=== PATIENT | male | born 1980 | race Caucasian/White ===

== ENCOUNTER 2024-05-19 23:10 | Emergency (ER) | payer OTHER, SELFPAY ==
[2024-05-19 23:10] VITALS: BMI 37.1
[2024-05-19 23:28] VITALS: BP 129/81
[2024-05-20 00:13] LABS: Urine Albumin Trace (Neg - Trace); Urine Bilirubin 1+ (Negative); Urine Character Clear (Clear); Urine Color Yellow; Urine Glucose Negative (Negative); Urine Ketone 1+ (Negative); Urine Leukocyte Negative (Negative); Urine Nitrite Negative (Negative); Urine Occult Blood 2+ (Negative); Urine Specific Gravity 1.025 (<1.030); Urine Urobilinogen 3+ (Neg - 1+)
[2024-05-20 00:35] VITALS: BP 115/82
--- NOTE | 2024-05-20 00:41 | ED.GENMED ---
History of Present Illness
General
Chief Complaint: Flank Pain
Source: patient
Time Seen by Provider: 05/20/24 00:28
History of Present Illness
History of Present Illness:
43-year-old male presents to the emergency room complaining of left leg pain. Patient began having flank pain a couple days ago. Today the pain became 2. Tolerate. He had chills today but did not take his temperature. Feels nauseous but has not
vomited. Patient states he does have a history of kidney stones.
Phy Exam
Physical Exam
Physical Exam:
General: Awake, Alert, Oriented X3. No acute distress.
Vitals: unremarkable
Head: Atraumatic
Eyes: Pupils equal, EOMI
Throat: Airway intact, no exudates
Neck: Trachea midline
Lungs: Clear and equal b/l
Heart: Regular rate, no murmurs
Abd: Soft, Nontender, No pulsatile mass
Back: Left CVA tenderness to percussion
Neuro: Nonfocal
Skin: Warm, dry, no rash
Extremities: pulses equal b/l, no edema
Course
Orders/Labs/Results
Orders:
Orders
05/19/24 23:53
Urinalysis Reflex To Culture Urgent
Date Specimen was Collected: 05/19/24
Time Specimen was Collected: 23:51
Urine Microscopic Reflex Cult Urgent
Urine Culture Urgent
JORJE Source: U
Specimen Description:
Date Specimen was Collected: 05/19/24
Time Specimen was Collected: 23:51
05/20/24 00:40
0.9% Sodium Chloride 500 ml [Nss] 500 ml IV BOLUS
Ketorolac [Toradol] 15 mg IV NOW STA
Ondansetron Injectable [Zofran] 4 mg IV NOW STA
05/20/24 00:41
CT Abd/pel Without Iv Or Oral Urgent
Comment:
Reason For Exam: left flank pain
05/20/24 00:54
Basic Metabolic Panel Urgent
Complete Blood Count/With Diff Urgent
Abnormal Lab Results
05/19/24 05/20/24
23:53 00:54
WBC 15.4 H 10^3/uL
(4.8-10.8)
MPV 10.7 H fL
(7.4-10.4)
Abs Immat Gran (auto) 0.1 H 10^3/uL
(0-0.05)
Absolute Neuts (auto) 11.7 H 10^3/uL
(1.4-6.5)
Absolute Monos (auto) 1.0 H 10^3/uL
(0.1-0.6)
Neutrophils % 76.2 H %
(42.2-75.2)
Lymphocytes % 15.1 L %
(20.5-51.1)
BUN 28 H mg/dl
(9-20)
Creatinine 1.8 H mg/dL
(0.7-1.3)
Glucose 109 H mg/dl
(70-99)
Urine Ketones 1+ A
(Negative)
Ur Occult Blood Reflex 2+ A
(Negative)
Urine Bilirubin 1+ A
(Negative)
Urine Urobilinogen 3+ A
(Neg - 1+)
Urine RBC 7-10 A /HPF
(0-2)
Urine Bacteria (Reflex) Moderate A
(Negative)
05/20/24 00:54
05/20/24 00:54
Vital Signs
Initial and Last Documented VS:
Initial Vital Signs
Temp Pulse Resp BP Pulse Ox
98.1 F 78 18 129/81 95
05/19/24 23:28 05/19/24 23:28 05/19/24 23:28 05/19/24 23:28 06/26/24 23:28
Last Documented Vital Signs
Temp Pulse Resp BP Pulse Ox
98.3 F 70 18 115/82 96
05/20/24 00:35 05/20/24 00:35 05/20/24 00:35 05/20/24 00:35 05/20/24 00:35
MDM/Problems Addressed
Differential Diagnosis Includes:
Kidney stone, muscle strain, pyelonephritis
MDM/Problems Addressed:
CT confirms the presence of a stone. It is quite large. Unlikely to pass spontaneously. Case discussed with Dr. Floyd. He will see the patient in the office likely tomorrow. Patient should call the office at 9 AM. Patient understands he needs
to return to the hospital if he develops a fever.
*Radiology
Radiology exam reviewed: other (Patient report reviewed)
*Pulse Oximetry
Patient hypoxic: no
*Critical Care Note
Total Time (30-74mins, 75-104mins- exclusive of procedures): Not Applicable
Patient Management
Social determinants of health affecting care: Strong social support
ED Attending Note
-
Portions of this chart may have been created with voice recognition software.� Occasional wrong word or��sound alike� substitutions may have occurred due to the inherent limitations of voice recognition software.
Discharge Plan
Departure
Patient Disposition: Home (Routine Discharge)
Date of Disposition: 05/20/24
Time of Disposition: 02:13
Patient with high blood pressure during this ER visit?: No
Condition: Good
Discharge Problem:
Kidney stone on left side
Instructions: Kidney Stones (DC), Narcotic Pain Medication
Prescriptions:
New
oxycodone 5 mg tablet
5 mg PO Q6H PRN (Reason: Pain) Qty: 12 0RF
Referrals:
Margareth Birch CRNP [Family Provider] -
Stand Alone Forms: Return to Work
Activity Restrictions/Additional Instructions:
Please take Tylenol 650 mg every 6 hours for pain. You can also take oxycodone 5 mg every 6 hours for pain. They can be crushed if you have difficulty taking pills. You need to call Dr. Heredia's office at 9 AM to arrange an appointment. You need
to return to the emergency room if you develop a fever before you passed the stone as this becomes a surgical emergency.
Interventions
Interventions:
*Risk Screen - Suicide Last Done: 05/19/24 23:28
*Neglect/Abuse Screening Last Done: 05/19/24 23:28
*ED COVID-19 Vaccine History Last Done: 05/19/24 23:28
Discharge Date and Time
Print Language: SWEDISH
[2024-05-20] MEDS: NSS 500 IV (00:51)
[2024-05-20] MEDS: ZOFRAN 4 MG IV (00:52)
[2024-05-20] MEDS: TORADOL 15 MG IV (00:52)
[2024-05-20 01:02] LABS: Urine Mucus Moderate
[2024-05-20 01:03] LABS: Urine Amorphous Seen
[2024-05-20 01:09] LABS: Urine Bacteria Moderate (Negative); Urine White Cell 0-2 /HPF (0-5)
[2024-05-20 01:09] LABS: % Basophils 0.4 % (0-2); % Immature Granulocytes 0.5 % (0-0.5); % Lymphocytes 15.1 % (20.5-51.1); % Monocytes 6.8 % (1.7-9.3); % Neutrophils 76.2 % (42.2-75.2); Absolute Basophils 0.1 10^3/uL (0-0.2); Absolute Eosinophils 0.2 10^3/uL (0-0.7); Absolute Immature Granulocytes 0.1 10^3/uL (0-0.05); Absolute Lymphocytes 2.3 10^3/uL (1.2-3.4); Absolute Neutrophils 11.7 10^3/uL (1.4-6.5); Hematocrit 44.7 % (39.0-52.0); Hemoglobin 15.6 g/dL (13.0-18.0); Mean Corp Hgb Conc. 34.9 g/dL (33.0-37.0); Mean Corpuscular Hgb 29.4 pg (27.0-31.0); Mean Corpuscular Volume 84.2 fL (80.0-94.0); Mean Platelet Volume 10.7 fL (7.4-10.4); Nucleated Red Blood Cells % 0 % (-); Platelet Count 225 10^3/uL (130-400); Red Blood Cell Count 5.31 10^6/uL (4.70-6.10); White Blood Cell Count 15.4 10^3/uL (4.8-10.8)
[2024-05-20 01:21] LABS: Blood Urea Nitrogen 28 mg/dl (9-20); Calcium 8.9 mg/dl (8.4-10.2); Carbon Dioxide 24 mmol/L (22-30); Chloride 105 mmol/L (98-107); Estimated Creatinine Clearance 63 ml/min; Glucose 109 mg/dl (70-99); Potassium 4.4 mmol/L (3.5-5.1); Sodium 137 mmol/L (135-145); eGFR 46.72
[2024-05-20] MEDS: DILAUDID 0.5 MG IV (02:24)
== END 2024-05-20 02:46 | disposition home or self-care (01) ==
LOC: EMR 23:10
PROVIDERS: Emergency Medicine; EMERGENCY PHYSICIAN Emergency Medicine; FAMILY PHYSICIAN Nurse Practitioner Family
DX: N20.0 Calculus of kidney (principal); Z87.442 Personal history of urinary calculi
CPT/HCPCS: 99284; 96374; 96375; 96361; 74176; 80048; 81003; 81015; 85025; 87086

== ENCOUNTER 2024-05-21 05:32 | Observation (INO) | payer OTHER, SELFPAY ==
[2024-05-20 23:49] VITALS: BP 150/90
[2024-05-21] VITALS (12 sets, daily range): BP systolic 102–130; BP diastolic 58–97; BMI 37.9
[2024-05-21 01:15] LABS: % Basophils 0.3 % (0-2); % Eosinophils 1.4 % (0-6); % Immature Granulocytes 0.4 % (0-0.5); % Lymphocytes 20.3 % (20.5-51.1); % Monocytes 7.4 % (1.7-9.3); % Neutrophils 70.2 % (42.2-75.2); Absolute Basophils 0.1 10^3/uL (0-0.2); Absolute Eosinophils 0.2 10^3/uL (0-0.7); Absolute Immature Granulocytes 0.1 10^3/uL (0-0.05); Absolute Lymphocytes 2.9 10^3/uL (1.2-3.4); Absolute Monocytes 1.1 10^3/uL (0.1-0.6); Absolute Neutrophils 10.2 10^3/uL (1.4-6.5); Hematocrit 43.9 % (39.0-52.0); Hemoglobin 14.6 g/dL (13.0-18.0); Mean Corp Hgb Conc. 33.3 g/dL (33.0-37.0); Mean Corpuscular Hgb 29.4 pg (27.0-31.0); Mean Corpuscular Volume 88.3 fL (80.0-94.0); Mean Platelet Volume 11.2 fL (7.4-10.4); Nucleated Red Blood Cells % 0 % (-); Platelet Count 209 10^3/uL (130-400); Red Blood Cell Count 4.97 10^6/uL (4.70-6.10); White Blood Cell Count 14.5 10^3/uL (4.8-10.8)
[2024-05-21 01:32] LABS: Urine Albumin Negative (Neg - Trace); Urine Bilirubin 1+ (Negative); Urine Character Clear (Clear); Urine Color Yellow; Urine Glucose Negative (Negative); Urine Ketone 2+ (Negative); Urine Leukocyte Negative (Negative); Urine Nitrite Negative (Negative); Urine Occult Blood 1+ (Negative); Urine Specific Gravity 1.015 (<1.030); Urine Urobilinogen 3+ (Neg - 1+)
[2024-05-21 01:37] LABS: Lactic Acid 1.1 mmol/L (0.7-2.0)
[2024-05-21 01:44] LABS: Urine Squamous Cell 0-2 /LPF (Few)
[2024-05-21 01:45] LABS: Urine Bacteria Few (Negative); Urine Mucus Few; Urine Red Blood Cell 16-20 /HPF (0-2); Urine White Cell 0-2 /HPF (0-5)
[2024-05-21 01:49] LABS: ALT (SGPT) 22 U/L (0-50); AST (SGOT) 26 U/L (17-59); Alkaline Phosphatase 94 U/L (38-126); Blood Urea Nitrogen 30 mg/dl (9-20); Calcium 8.9 mg/dl (8.4-10.2); Carbon Dioxide 25 mmol/L (22-30); Chloride 103 mmol/L (98-107); Glucose 90 mg/dl (70-99); Potassium 4.6 mmol/L (3.5-5.1); Sodium 136 mmol/L (135-145); Total Protein 6.9 g/dl (6.3-8.2); eGFR 43.79
--- NOTE | 2024-05-21 02:43 | ED.GENMED ---
History of Present Illness
General
Chief Complaint: Fever
Source: patient
Exam Limitations: none
Time Seen by Provider: 05/21/24 02:27
History of Present Illness
History of Present Illness:
This is a 43 year old male that comes in with c/o feeling weak and sweating. Patient was seen her last night for renal calculus. States that he went to see Dr. Heredia yesterday and he was told that he will not pass this stone. State that he was told
to come in if he was not feeling will. States that he took Oxycodone at 1pm and this is not really helping his pain. States that he was weak and sweating and states that he was not himself. States that he had chills but was not shaking. States that
he was also nauseated, had a headache and dizziness. Denies any fever, chest pain, SOB, abd pain, vomiting, diarrhea, urinary burning.
Past History
Past History
ED Past Medical History: HTN and Other (Renal calculus)
ED Past Surgical History: None
Social History
Tobacco: Non-smoker
Alcohol: None
Personal: Single (has significant other)
Living: with family
Review of Systems
Review of Systems
All Other Systems: ROS reviewed and negative except as documented in HPI and ROS
Constitutional: Reports night sweats and chills (but not shaking); Denies fever
EENT: Reports no symptoms
Respiratory: Denies cough or trouble breathing
Cardiac: Reports no symptoms; Denies chest pain
ABD/GI: Reports abdominal pain (Sore) and nausea; Denies vomiting or diarrhea
: Reports no symptoms; Denies dysuria, frequency or urgency
Musculoskeletal: Reports no symptoms
Skin: Reports no symptoms
Neurological: Reports dizzy and headache
Psychiatric: Reports no symptoms
Phy Exam
General Physical Exam
General Presentation: no apparent distress
General age: appears stated age
General Skin: warm and dry
General Habitus: normal
General Mental: alert
General Hydration: dry mucous membranes
ENT Exam
ENT Exam: TM's normal, pharynx normal and neck supple
Eye Exam
Eye Exam: EOMI
Cardiovascular Exam
Cardiovascular Exam: regular rate/rhythm, no edema and normal peripheral pulses
Pulmonary Exam
Pulmonary Exam: lungs clear, no respiratory distress, no rales, chest non tender, no crackles, no rhonchi, no wheezing and no cough
Gastrointestinal Exam
Gastrointestinal Exam: normal bowel sounds, soft, no organomegaly, no pulsatile mass, non distended and tender (Slight tenderness right sided with palpation)
Musculoskeletal Exam
Musculoskeletal Exam: full ROM and no edema
Skin Exam
Skin Exam: normal color, warm/dry, no rash and no petechia
Psychiatric Exam
Psychiatric Exam: normal mood/affect
Course
Orders/Labs/Results
Orders:
Orders
05/21/24 00:53
IV Insert/Care/Rem.- Treatment PRN
05/21/24 01:06
Complete Blood Count/With Diff Urgent
Comprehensive Metabolic Panel Urgent
Lactic Acid Q4H
Comment: ON ICE, CANCEL 2ND ORDER IF FIRST LACTIC ACID LEVEL <2
Urinalysis Reflex To Culture Urgent
Date Specimen was Collected: 05/21/24
Time Specimen was Collected: 00:54
Urine Microscopic Reflex Cult Urgent
Blood Culture Q30M
JORJE Source: Blood/Venous
Specimen Description:
Comment: FROM 2 SEPARATE SITES
05/21/24 02:14
Blood Culture Q30M
JORJE Source: Blood/Venous
Specimen Description:
Comment: FROM 2 SEPARATE SITES
05/21/24 02:40
0.9% Sodium Chloride 1000 ml [Nss] 1,000 ml IV BOLUS
05/21/24 03:07
HYDROmorphone [Dilaudid] 1 mg IV NOW STA
Ondansetron Injectable [Zofran] 4 mg IV NOW STA
Abnormal Lab Results
05/21/24
01:06
WBC 14.5 H 10^3/uL
(4.8-10.8)
MPV 11.2 H fL
(7.4-10.4)
Abs Immat Gran (auto) 0.1 H 10^3/uL
(0-0.05)
Absolute Neuts (auto) 10.2 H 10^3/uL
(1.4-6.5)
Absolute Monos (auto) 1.1 H 10^3/uL
(0.1-0.6)
Lymphocytes % 20.3 L %
(20.5-51.1)
BUN 30 H mg/dl
(9-20)
Creatinine 1.9 H mg/dL
(0.7-1.3)
Urine Ketones 2+ A
(Negative)
Ur Occult Blood Reflex 1+ A
(Negative)
Urine Bilirubin 1+ A
(Negative)
Urine Urobilinogen 3+ A
(Neg - 1+)
Urine RBC 16-20 A /HPF
(0-2)
Urine Bacteria (Reflex) Few A
(Negative)
05/21/24 01:06
05/21/24 01:06
Leukocytosis, Acute renal insufficiency, Urine negative for infection. Lactic acid normal at 1.1, Urine negative for infection.
Vital Signs
Initial and Last Documented VS:
Initial Vital Signs
Temp Pulse Resp BP Pulse Ox
98.7 F 73 18 150/90 99
05/20/24 23:49 05/20/24 23:49 05/20/24 23:49 05/20/24 23:49 05/20/24 23:49
Last Documented Vital Signs
Temp Pulse Resp BP Pulse Ox
98.6 F 74 20 130/90 98
05/21/24 00:58 05/21/24 00:58 05/21/24 00:58 05/21/24 00:58 05/21/24 00:58
MDM/Problems Addressed
Differential Diagnosis Includes:
Renal calculus,
MDM/Problems Addressed:
This is a 43 year old male that was seen here on 05/20/24. Patient was told that he had a renal calculus. Patient followed up with Dr. Heredia on the and was scheduled for surgery on Friday. Today patient had increased pain as his oxycodone was
not helping. States that he was sweating, had chills but was not shaking and he felt weak.
Will medicate for pain. Give IV fluids, get labs.
Spoke with Dr. Colon and will admit patient and keep NPO. Back into see patient and explained that he would be admitted.
Chronic conditions affecting care: HTN
Acute Exacerbation and/or Progression of Chronic Illness:
Renal calculus
*Pulse Oximetry
Patient hypoxic: no
*EKG
Interpreted by ED Provider?: NA
Rate: EKG- N/A
*[employer] Interpretation
Rate: normal
Heart Rate: 68
Rhythm: sinus
*Critical Care Note
Total Time (30-74mins, 75-104mins- exclusive of procedures): Not Applicable
ED Attending Note
-
Portions of this chart may have been created with voice recognition software.� Occasional wrong word or��sound alike� substitutions may have occurred due to the inherent limitations of voice recognition software.
Discharge Plan
Departure
Patient Disposition: Admit
Date of Disposition: 05/21/24
Time of Disposition: 03:15
Admit to: Med/Surg
Presentation/result/management discussed w/ accepting MD/DO: Dr. Colon
Patient with high blood pressure during this ER visit?: Yes
Condition: Good
Discharge Problem:
Renal calculus, left
Prescriptions:
No Action
oxycodone 5 mg tablet
5 mg PO Q6H PRN (Reason: Pain) Qty: 12 0RF
'Vallarta'
160 mg PO DAILY
amlodipine 5 mg Tablet
5 mg PO DAILY
Interventions
Interventions:
*General Assessment Last Done: 05/21/24 01:50
ED- Fall Risk Assessment Last Done: 05/21/24 01:50
*ED COVID-19 Vaccine History Last Done: 05/21/24 01:50
ED- Neurological Assessment Last Done: 05/21/24 01:50
ED-Skin Assessment Last Done: 05/21/24 01:50
Discharge Date and Time
Print Language: CZECH
[2024-05-21] MEDS: NSS 1000 IV ×2 (03:24→06:06)
[2024-05-21] MEDS: ZOFRAN 4 MG IV (03:25)
[2024-05-21] MEDS: DILAUDID 1 MG IV ×2 (03:25→14:10)
--- NOTE | 2024-05-21 03:57 | HPS.HSE ---
Family Physician
-
Family Physician: KEMI Alvarez
Chief Complaint
-
Weakness, diaphoresis
History of Present Illness
Patient is a 43-year-old male with past medical history of hypertension and renal calculus. Patient presented to [facility] ED for evaluation following increased weakness with diaphoresis. Dr. Heredia saw patient in the out- patient setting and
informed him that this stone likely would not pass and instructed him to go to ED if not feeling well. Family at bedside stated that he did not seem himself this afternoon where he was very diaphoretic, pale and just 'not himself.' Patient claims he
experienced some nausea but denies any episodes of emesis. Patient denies fever, chest pain, shortness of breath, abdominal pain, emesis, diarrhea, constipation and urinary symptoms.
Medical History
Past Medical History
Past Medical History: Reports HTN
Past Surgical History: Reports None
Social History
Tobacco: Smoker (24 pack years)
Alcohol: None
Drug: None (significant other)
Personal: Single
Living: With Roomate (significant other)
Employment: Employed (starts new job Friday)
Family History
Family History: Not pertinent
Allergies / Home Medications
Allergies reflects when Allergies were last updated in [employer]
Home Medications with original date entered in [employer]
Allergy/Medication List:
Allergies
Allergy/AdvReac Type Severity Reaction Status Date / Time
No Known Allergies Allergy Verified 05/20/24 23:47
Review of Systems
-
History Source: Patient
A 12 point ROS was completed and negative except as noted: Yes
Constitutional: Reports Fatigue and Chills
EENT: Reports See HPI
Respiratory: Reports See HPI
Cardiac: Reports Diaphoresis
Abdomen/GI: Reports Nausea
: Reports See HPI
Musculoskeletal: Reports See HPI
Neurological: Reports See HPI
Endocrine: Reports See HPI
Hematologic/Lymphatic: Reports See HPI
Psych: Reports See HPI
Physical Exam
Vital Signs
Vital Signs
Temp Pulse Resp BP Pulse Ox
98.6 F 67 27 128/79 95
05/21/24 00:58 05/21/24 03:15 05/21/24 03:15 05/21/24 03:00 05/21/24 03:15
Physical Exam
General: Well Developed, Well Nourished, Comfortable, Conversant and Obese
HEENT: NormoCephalic, Moist mucous membranes, PERRLA and [place] Conjunctivae
Respiratory: Clear and Non Labored Respirations
Cardiac: S1/S2 and Regular Rhythm
Breast: Deferred by me
GI: Soft, Non Tender and Normal Bowel Sounds
Rectal: Deferred by Provider
Genito-urinary: Deferred by me
Musculoskeletal: No Clubbing, No Cyanosis and No Edema
Skin: Warm, Dry and IV/Catheter Site
Neuro: Awake and AO x 3
Hematologic/Lymphatic: No Lymphadenopathy
Psych: Intact Judgment/Insight
Laboratory Results
-
05/21/24 01:06
05/21/24 01:06
Laboratory Results
Lactic Acid Cancelled 05/21/24 05:00
Total Bilirubin 1.0 mg/dl (0.2-1.3) 05/21/24 01:06
AST 26 U/L (17-59) 05/21/24 01:06
ALT 22 U/L (0-50) 05/21/24 01:06
Alkaline Phosphatase 94 U/L (38-126) 05/21/24 01:06
Impression/Plan
-
IMPRESSION:
Patient is a 43-year-old male with past medical history of hypertension and renal calculus. Patient presented to [facility] ED for evaluation following increased weakness with diaphoresis. Dr. Heredia saw patient in the out- patient setting and
informed him that this stone likely would not pass and instructed him to go to ED if not feeling well. Family at bedside stated that he did not seem himself this afternoon where he was very diaphoretic, pale and just 'not himself.' Patient claims he
experienced some nausea but denies any episodes of emesis. Patient denies fever, chest pain, shortness of breath, abdominal pain, emesis, diarrhea, constipation and urinary symptoms.
PLAN:
#Renal Calculus
- Admit to Dr. Colon
- NPO
- IVF
- Pain management
- antiemetics
NPO
Full Code
DVT Prophylaxis: SCDs
--- NOTE | 2024-05-21 05:40 | PTCARENOTE ---
Pt arrived from ED via stretcher. Pt ambulated to bed without assist. AAOx3. C/o mild 3/10 pain to R flank area. No other complaints at this time. CHG bath done.
--- NOTE | 2024-05-21 06:02 | HP.FOC2 ---
Focused History & Physical
Chief Complaint
HPI:
Chief Complaint:
stone
HPI / Indication for Planned Procedure:
pt readmitted with 1cm left upj stone/intractable pain and some chills
mild elevation of wbc and cr
no registered fevers
Relevant Past Medical History: Hypertension
Relevant Social History: Negative
Relevant Family History: Negative
Relevant Past Surgical History: Negative
Review of Systems
Review of Pertinent Systems: All Systems Negative Except for the Following Positives (some chill and nausea)
Medication
See Medication form for detailed medications: Yes
Medication List (including Herbals & OTC):
oxycodone 5 mg tablet 5 mg PO Q6H PRN Pain #12 tabs 05/20/24
'Vallarta' 160 mg PO DAILY 05/21/24
amlodipine 5 mg tablet 5 mg PO DAILY 05/21/24
valsartan 160 mg tablet 160 mg PO DAILY 05/21/24
Medications Reviewed: Yes
Allergies and Reactions
Patient has Allergies: No
Noted Allergies and Reactions:
Allergy/AdvReac Type Severity Reaction Status Date / Time
No Known Allergies Allergy Verified 05/20/24 23:47
Pertinent Physical Exam
All Other Systems: Negative
Head/Neck: Normal
Lungs: Normal
Heart: Normal
Abdomen: Normal
Extremities: Normal
Neurological: Normal
Diagnosis / Assessment
stone with intractable pain
some chills and elevated wbc
Plan / Procedure
admitted for pain control/ivf and antibx
to OR today for stent- possible ureteroscopy
risks,benefits, alternatives and disabilities reviewed
Anesthesia/Sedation to be done by Anesthesia Provider: Yes
[2024-05-21] MEDS: ROCEPHIN 1000 MG IV (06:16)
[2024-05-21] MEDS: STERILE WATER FOR INJECTION 10 ML IV (06:16)
[2024-05-21] MEDS: DIOVAN 160 MG PO (08:15)
--- NOTE | 2024-05-21 12:36 | W.IMMPOSTOP ---
Surgical Immed Post Op Note
-
Primary Surgeon:
valentina
Assisting Surgeon:
Pre-op Diagnosis:
left ureteral stone
Post-op Diagnosis:
same
Procedure Performed:
left ureteroscopy/laser litho/stent
Anesthesia Type:
gen
Specimen / Cultures:
stone
Estimated Blood Loss:
2cc
Complications:
none
Operative Findings:
home later today if stable
[2024-05-21] MEDS: FLOMAX 0.400000000000000022 MG PO (13:58)
[2024-05-21] MEDS: Pyridium 200 MG PO (13:59)
--- NOTE | 2024-05-21 14:45 | W.DS.TRANS ---
DC Summary - Plate Driller
-
Discharge Instructions:
Discharge Diagnosis/Procedures you had a left ureteroscopy/laser lithotripsy of
stone and stent placement
Diet No restrictions
Activity No restrictions
Driving Restrictions As prior to admission
Bathing Restrictions OK to Shower
Wound Care expect blood in urine, urinary frequency and
urgency and some pain with urination
Instructions:
Stand-Alone Forms:
Changes to Home Medications: No
Discharge Medications:
DC Medications w/original date entered in [facility]
'Vallarta' 160 mg PO DAILY 05/21/24
amlodipine 5 mg tablet 5 mg PO DAILY 05/21/24
cefdinir 300 mg capsule 300 mg PO BID #10 caps 05/21/24
phenazopyridine 100 mg tablet (Pyridium) 100 mg PO BID #30 tabs 05/21/24
tamsulosin 0.4 mg capsule 0.4 mg PO DAILY #20 caps 05/21/24
tramadol 50 mg tablet 50 mg PO Q8H PRN Pain #30 tabs 05/21/24
valsartan 160 mg tablet 160 mg PO DAILY 05/21/24
Home Medication Changes
Pending Results: No
--- NOTE | 2024-05-21 14:50 | W.PN.UPDATE ---
Update Note
Progress Note Update
s/p left ULS (stent in place) earlier today w/ Dr. Colon.
Patient now awake - reviewed intra-op findings and plan for stent removal in office in 2 weeks.
Patient expressed significant appreciation of our care.
OK to d/c home later this afternoon/evening in care of his spouse.
F/U instructions entered, eRx sent.
Spouse cell called - no answer, VM left.
D/w patient.
--- NOTE | 2024-05-21 16:35 | CM ---
Addendum entered by Marcia Watkins RN 05/21/24 16:38:
Observation letter given Pt declined to sign it.
Original Note:
Alert awake oriented patient who lives with his Mariama who lives in a 2 story home with 1 step to enter and bed and bathroom on first floor. He is independent in driving and in all activities of daily living.He was offered VN he declined
need.He had surgery today. His will drive him home.
No VN hx / No SNF history
[facility]
PCP DR Birch
PLAN Home Declined VN
== END 2024-05-21 17:52 | disposition home or self-care (01) ==
LOC: 4 EAST ACU 05:32
PROVIDERS: Specialist; ADMITTING PHYSICIAN Surgery; EMERGENCY PHYSICIAN Student in an Organized Health Care Education/Training Program; FAMILY PHYSICIAN Nurse Practitioner Family
DX: N20.1 Calculus of ureter (principal); R50.9 Fever, unspecified; R53.1 Weakness; R42 Dizziness and giddiness; R51.9 Headache, unspecified; R11.0 Nausea; I10 Essential (primary) hypertension; R61 Generalized hyperhidrosis; Z87.442 Personal history of urinary calculi; F17.210 Nicotine dependence, cigarettes, uncomplicated
CPT/HCPCS: 52356; 74420; 76000; 80053; 81003; 81015; 82365; 83605; 85025; 87040; 93005; 96361; 96374; 96375; 99285